=== PATIENT | male | born 1965 | race Caucasian/White ===

== ENCOUNTER → 2024-09-25 | Outpatient (CLI) | payer BC ==
--- NOTE | 2024-09-25 12:55 | US ---
EXAMINATION TYPE: US venous doppler duplex LE LT DATE OF EXAM: 09/25/2024 12:44 PM COMPARISON: NONE CLINICAL INDICATION: Male, 59 years old with history of M25.562 PAIN IN LEFT KNEE; Pain in left knee started yesterday. No hx of DVT. Patient takes aspirin. TECHNIQUE: The lower extremity deep venous system is examined utilizing real time linear array sonog jairo with graded compression, color doppler sonography, and spectral doppler. SIDE PERFORMED: Left FINDINGS: VESSELS IMAGED: Common Femoral Vein Deep Femoral Vein Greater Saphenous Vein * Femoral Vein Popliteal Vein Small Saphenous Vein * Proximal Calf Veins (* superficial vessels) Left Leg: *No evidence of DVT. Peroneal veins were obscured. *Complex area seen medial left knee: 3.8 x 2.3 x 1.0 cm. Appropriate color Doppler flow with venous spectral waveforms. IMPRESSION: 1. No evidence for deep vein thrombosis. 2. Left popliteal fossa cystic lesion possibly representing a Velasco's cyst considers MRI if clinical ly warranted. [facility], , 09/25/2024 12:53 PM
== END | disposition home or self-care (01) ==
LOC: RADUSWWP 12:22
PROVIDERS: ATTEND Family Medicine
DX: M25.562 Pain in left knee (principal); Z79.82 Long term (current) use of aspirin

== ENCOUNTER → 2024-10-06 | Outpatient (CLI) | payer BC ==
--- NOTE | 2024-10-06 16:40 | CTL ---
EXAMINATION TYPE: CT Low Dose Lung DATE OF EXAM ORDERED: 10/06/2024 COMPARISON: None CLINICAL INDICATION: Male, 59 years old with history of Z12.2, F17.210 NICOTINE DEPENDENCE, CIGARETTE S, UN; PHH, current smoker.... 1 ppd x 42 years., Lung cancer screening, History of Smoking/tobacco u se. TECHNIQUE: Low dose computed tomography scan was performed through the chest at 1 mm thick sections a nd reconstructed images in multiple planes at 1 mm and [address] DLP: 149.[address] CTDI: 3.8 mGy Automated exposure control for dose reduction was used. CT DIAGNOSTIC QUALITY: Satisfactory FINDINGS: Nodules: No clinically significant pulmonary nodule. LUNGS: COPD: Severity: Minimal Fibrosis: Severity: None Lymph nodes: None Other findings: None RIGHT PLEURAL SPACE: Effusion: None Calcification: None Thickening: None Pneumothorax: None LEFT PLEURAL SPACE: Effusion: None Calcification: None Thickening: None Pneumothorax: None HEART: Heart Size: Normal Coronary Calcification: None Pericardial Effusion: None OTHER FINDINGS: Upper abdomen: None Bony thorax: Mild multilevel degenerative disc disease of the lower thoracolumbar spine. Supraclavicular region: None Other: Minimal atherosclerotic calcification of the aorta and its branches. IMPRESSION: 1. No clinically significant pulmonary nodule. 2. Minimal emphysematous changes. CT LUNG RAD AND CT CHEST RECOMMENDATION: Lung-Rad 1 Negative: Continue annual screening with LDCT in 12 months. S Modifier (other clinically significant findings): None [facility], , 10/06/2024 4:38 PM
== END | disposition home or self-care (01) ==
LOC: RADCTMAIN 15:58
PROVIDERS: ATTEND Family Medicine
DX: Z12.2 Encounter for screening for malignant neoplasm of respiratory organs (principal); F17.210 Nicotine dependence, cigarettes, uncomplicated; J43.9 Emphysema, unspecified
CPT/HCPCS: 71271